=== PATIENT | female | born 1985 | race Two or more races ===

== ENCOUNTER 2018-01-03 11:38 | Emergency (ER) | payer MEDICAID ==
[~2018-01-03] VITALS: Ht 162.6 cm; Wt 53.5 kg
[2018-01-03] MEDS ORDERED: NKM (12:00)
[2018-01-03] MEDS ORDERED: Acetaminophen 500mg (ES) tab ORAL ONE (12:15)
[2018-01-03] MEDS ORDERED: Lidocaine 2% Visc 15ml soln ORAL ONE (12:15)
--- NOTE | 2018-01-03 12:20 | Emergency Room Report ---
History of Present Illness General Chief Complaint: Sore Throat Source: Patient Present Illness [facility] 32-year-old female patient presents to ER complaining of sore throat and frequency for the past one day. Reports body aches and fever to 101 during this time, reports took peppermint oil which cured fever, has not taken any Tylenol or Motrin. denies vomiting or diarrhea. denies earache. Denies cough, chest pain, shortness of breath. Also complains of frequency, denies history of diabetes. reports drinking a lot of water yesterday. Denies dysuria, hematuria, vaginal discharge. Reports last menstrual period normal. denies abdominal pain or back pain. Denies flank pain. Denies other acute symptoms. denies history of STI or herpes. Denies rash. Allergies: Coded Allergies: No Known Allergies (Unverified , 07/18/12) Patient History Past Medical History: see triage record Last Menstrual Period: 12/15/17 Reviewed Nursing Documentation: PMH: Agreed; PSxH: Agreed Nursing Documentation-PMH Past Medical History: No Stated History Review of Systems All Other Systems: negative except mentioned in HPI Physical Exam Vital Signs Date Time Temp Pulse Resp B/P (MAP) Pulse Ox O2 Delivery O2 Flow Rate FiO2 01/03/18 11:56 98.9 89 16 114/71 96 Room Air 99.0 Sp02 EP Interpretation: reviewed, normal General Appearance: well appearing, no apparent distress, alert, GCS 15, non- toxic Head: normocephalic, atraumatic Eyes: bilateral eye normal inspection, bilateral eye PERRL ENT: hearing grossly normal, normal pharynx, no angioedema, normal voice, TMs + canals normal, uvula midline, moist mucus membranes, tonsillar swelling, pharyngeal erythema, other - no strawberry tongue, no tonsillar exudates Neck: full range of motion Respiratory: lungs clear, normal breath sounds, no rhonchi, no respiratory distress, no accessory muscle use, no wheezing, speaking full sentences Cardiovascular #1: regular rate, rhythm, no edema Gastrointestinal: non tender, soft, no mass, non-distended, no guarding, no rebound Genitourinary: no CVA tenderness Musculoskeletal: back normal, digits/nails normal, gait/station normal, normal range of motion, non-tender Neurologic: alert, oriented x3, responsive, 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 Whiting is my supervising Physician whom patient management has been discussed with. Diagnostic Impression: Primary Impression: Urinary tract infection Additional Impression: Sore throat ER Course Pt presents to ED c/o sore throat and frequency. DDX considered but are not limited to pharyngitis, laryngitis, URI, peritonsillar abscess, tonsillitis, UTI, cystitis. Low suspicion for peritonsillar abscess, no neck stiffness, no hot potato voice , no stridor. Does not require imaging at this time. VITAL SIGNS are WNL, patient is afebrile. ORDERS: -Dexamethasone -Tylenol -UA -Urine ER COURSE: pharyngeal erythema, tender cervical lymphadenopathy, no cough, no fever in the ER, likely viral. Take Tylenol for pain symptoms. salt water gargles. No swelling of the face noted, no facial droop, able to furrow brow, no focal neuro deficits. Take Tylenol for pain symptoms. urine negative UA positive for white blood cells, leukocyte esterase, bacteria, will treat with antibiotics. Drink plenty of fluids, follow-up with primary care provider to discuss further evaluation and treatment as needed. Discuss referral to urology as needed. If concern for STI followup with STI clinic for testing and treatment. Denies concern at this time. DISCHARGE: Rx provided for Keflex Salt water gargles Rx provided for Tylenol for pain and fever symptoms At this time pt is stable for d/c to home. Patient is resting comfortably, in no acute distress, nontoxic appearing, talking without difficulty. Will provide with patient care instructions and any necessary prescriptions. Patient to take medication as instructed. Care plan and follow-up instructions provided. Patient questions asked and answered. Patient instructed to follow-up with primary care provider in 3 - 5 days. ER precautions given. Patient instructed to return to ER immediately for any new or worsening of symptoms including but not limited to intractable vomiting, difficulty breathing, inability to eat. - Please note that this Emergency Department Report was dictated using [employer] manager technology software, occasionally this can lead to erroneous entry secondary to interpretation by the dictation equipment. Labs Test 01/03/18 12:26 Urine Color Yellow Urine Appearance Turbid Urine pH 5 (4.5-8.0) Urine Specific [place] 1.020 (1.005-1.035) Urine Protein 1+ (NEGATIVE) Urine Glucose (UA) Negative (NEGATIVE) Urine Ketones 2+ (NEGATIVE) Urine Occult Blood 1+ (NEGATIVE) Urine Nitrite Negative (NEGATIVE) Urine Bilirubin Negative (NEGATIVE) Urine Urobilinogen Normal MG/DL (0.0-1.0) Urine Leukocyte Esterase 3+ (NEGATIVE) Urine RBC 0-2 /HPF (0 - 2) Urine WBC 10-15 /HPF (0 - 2) Urine Squamous Epithelial Cells Many /LPF (NONE/OCC) Urine Bacteria Many /HPF (NONE) Urine HCG, Qualitative Negative (NEGATIVE) Last Vital Signs Date Time Temp Pulse Resp B/P (MAP) Pulse Ox O2 Delivery O2 Flow Rate FiO2 01/03/18 11:56 98.9 89 16 114/71 96 Room Air 99.0 Disposition: HOME, SELF-CARE Condition: Stable Scripts Acetaminophen* (TYLENOL EXTRA STRENGTH*) 500 Mg Tablet 500 MG ORAL Q8H PRN for Prn Headache/Temp > 101, #30 TAB 0 Refills Prov: Pepe Regalado 01/03/18 Cephalexin* (KEFLEX*) 500 Mg Capsule 500 MG ORAL EVERY 12 HOURS, #14 CAP 0 Refills Prov: Pepe Regalado 01/03/18 Patient Instructions: Sore Throat, Urinary Tract Infection, [id number] Additional Instructions: Followup with primary care provider and discuss followup with and./or OBGYN as needed. Drink plenty of fluids. Take medications as directed. Salt water also and Tylenol for pain. Patient questions asked and answered. ER precautions given, patient instructed to return to ER immediately for any new or worsening of symptoms. Pepe Regalado Jan 03, 2018 12:20
[2018-01-03] MEDS ORDERED: Dexamethasone Elixir 0.25mg/2.5ml ORAL ONE (12:30)
[2018-01-03 12:38] VITALS: BP 114/71
[2018-01-03 12:38] LABS: APPEARANCE,URINE TURBID; BILIRUBIN, URINE NEGATIVE (NEGATIVE); COLOR,URINE YELLOW; GLUCOSE, URINE (UA) NEGATIVE (NEGATIVE); KETONES,URINE 2+ (NEGATIVE); LEUKOCYTE ESTERASE ,URINE 3+ (NEGATIVE); NITRITE,URINE NEGATIVE (NEGATIVE); PH,URINE 5 (4.5-8.0); PROTEIN,URINE 1+ (NEGATIVE); UROBILINOGEN,URINE NORMAL MG/DL (0.0-1.0)
[2018-01-03] MEDS ORDERED: TYLENOL EXTRA500 MG ORAL (12:57)
[2018-01-03] MEDS ORDERED: CEPHALEXIN500 MG ORAL (12:57)
[2018-01-03 14:00] VITALS: BP 110/70
== END 2018-01-03 14:01 | disposition home or self-care (01) ==
LOC: EMR 12:34
DX: N39.0 Urinary tract infection, site not specified (principal); J02.9 Acute pharyngitis, unspecified
CPT/HCPCS: 81003; 81025; 87086; 99284; J8540

== ENCOUNTER 2018-09-18 08:30 | Emergency (ER) | payer MEDICAID ==
[~2018-09-18] VITALS: Ht 162.6 cm; Wt 56.7 kg
[~2018-09-18 08:30] MED LIST: CEPHALEXIN500 MG ORAL; NKM; TYLENOL EXTRA500 MG ORAL
[2018-09-18 08:36] VITALS: BP 106/62
[2018-09-18] MEDS ORDERED: Acetaminophen 500mg (ES) tab ORAL ONE (09:00)
--- NOTE | 2018-09-18 09:06 | Emergency Room Report ---
History of Present Illness General Chief Complaint: Flu Like Symptoms Source: Patient Present Illness HPI 33-year-old female with no medical problems presents with sensation of myalgias since last night, she had a subjective fever, as well as headache, right greater than left, but moderate intensity, gradual onset, denies toothache, sore throat ear pain, any other symptoms. Recent illness such as cough, shortness of breath, abdominal pain, vomiting, diarrhea, only other symptom she noticed this morning visit felt a little uncomfortable when she urinated. Allergies: Coded Allergies: No Known Allergies (Unverified , 07/18/12) Patient History Past Medical History: see triage record Last Menstrual Period: 3-3 Now: No Reviewed Nursing Documentation: PMH: Agreed; PSxH: Agreed Nursing Documentation-PMH Past Medical History: No Stated History Review of Systems All Other Systems: negative except mentioned in HPI Physical Exam Vital Signs Date Time Temp Pulse Resp B/P (MAP) Pulse Ox O2 Delivery O2 Flow Rate FiO2 09/18/18 08:36 98.1 90 18 106/62 98 Room Air Sp02 EP Interpretation: reviewed, normal General Appearance: no apparent distress, alert, non-toxic Head: normocephalic Eyes: bilateral eye normal inspection, bilateral eye PERRL, bilateral eye EOMI ENT: normal ENT inspection, hearing grossly normal, normal pharynx, no angioedema, normal voice, moist mucus membranes Neck: normal inspection, full range of motion, supple, supple/symm/no masses Respiratory: chest non-tender, lungs clear, normal breath sounds, chest symmetrical, palpation of chest normal Cardiovascular #1: normal peripheral pulses, regular rate, rhythm Cardiovascular #2: 2+ radial (R), 2+ radial (L) Gastrointestinal: normal inspection, non tender, soft, no mass, no guarding, no rebound Rectal: deferred Genitourinary: normal inspection, no CVA tenderness Musculoskeletal: back normal, gait/station normal, normal range of motion, non- tender, no calf tenderness, Adilene's Sign negative Neurologic: alert, responsive, 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 UA equivocal, UPT negative, will dc with macrobid. Last Vital Signs Date Time Temp Pulse Resp B/P (MAP) Pulse Ox O2 Delivery O2 Flow Rate FiO2 09/18/18 08:57 90 18 Room Air 09/18/18 08:36 98.1 106/62 98 Disposition: HOME, SELF-CARE Condition: Stable Scripts No Active Prescriptions or Reported Meds Referrals: ROMAINE PINA,REFERRING (PCP) CRISTINO BOB M.D Sep 18, 2018 09:06
[2018-09-18 09:28] LABS: APPEARANCE,URINE CLEAR; BILIRUBIN, URINE NEGATIVE (NEGATIVE); COLOR,URINE YELLOW; GLUCOSE, URINE (UA) NEGATIVE (NEGATIVE); KETONES,URINE 1+ (NEGATIVE); LEUKOCYTE ESTERASE ,URINE 1+ (NEGATIVE); NITRITE,URINE NEGATIVE (NEGATIVE); PH,URINE 5 (4.5-8.0); PROTEIN,URINE 1+ (NEGATIVE); UROBILINOGEN,URINE NORMAL MG/DL (0.0-1.0)
[2018-09-18] MEDS ORDERED: NITROFURANTOIN100 M2 ORAL (09:45)
[2018-09-18 10:01] VITALS: BP 106/62
== END 2018-09-18 09:58 | disposition home or self-care (01) ==
LOC: EMR 08:51
DX: N39.0 Urinary tract infection, site not specified (principal); R50.9 Fever, unspecified; R51 Headache
CPT/HCPCS: 81003; 81025; 99283

== ENCOUNTER 2019-08-10 22:24 | Emergency (ER) | payer MEDICAID ==
[~2019-08-10] VITALS: Ht 162.6 cm; Wt 56.2 kg
[~2019-08-10 22:24] MED LIST changes: +NITROFURANTOIN100 M2 ORAL
--- NOTE | 2019-08-10 22:27 | NUR ---
called for triage not in waiting room.
--- NOTE | 2019-08-10 22:40 | NUR ---
ED Nurse Note: Patient walked into ED c/o left knee pain x 3 days. Stated she was exercising at onset of injury. Denies any fall. Pt able to walk with steady gait.
--- NOTE | 2019-08-10 23:22 | NUR ---
ED Nurse Note: xray at bedside.
[2019-08-11] MEDS ORDERED: IBUPROFEN400 MG ORAL (00:02)
[2019-08-11 00:06] VITALS: BP 134/81
--- NOTE | 2019-08-11 00:06 | NUR ---
ED Nurse Note: Pt cleared by ERMD for discharge. DC instructions/prescription was given and explained to pt and verbalized understanding of teachings. All medical deviecs such as ID band removed. Pt is AAO x4, ambulatory and left with all personal belongings.
--- NOTE | 2019-08-11 04:06 | Emergency Room Report ---
History of Present Illness General Chief Complaint: Lower Extremity Injury Source: Patient Present Illness HPI 34-year-old female presents ED for evaluation. Complaining of left knee pain. Started 3 days ago while doing squats at the gym. Banks a "crack" in her left knee. States she has not exercised since but feels pain and swelling to the left knee. Throbbing, 6 out of 10, nonradiating. Is able to ambulate. No other aggravating relieving factors. Denies any other associated symptoms Allergies: Coded Allergies: No Known Allergies (Unverified , 07/18/12) Patient History Past Medical History: none Past Surgical History: none Social History: Denies: smoking, alcohol use, drug use Last Menstrual Period: 07/26/2019 Now: No Immunizations: UTD Reviewed Nursing Documentation: PMH: Agreed; PSxH: Agreed Nursing Documentation-PMH Past Medical History: No Stated History Review of Systems All Other Systems: negative except mentioned in HPI Physical Exam Vital Signs Date Time Temp Pulse Resp B/P (MAP) Pulse Ox O2 Delivery O2 Flow Rate FiO2 08/10/19 22:34 98.6 90 14 134/81 (98) 98 Room Air Sp02 EP Interpretation: reviewed, normal General Appearance: no apparent distress, alert, GCS 15, non-toxic Head: normocephalic Eyes: bilateral eye normal inspection, bilateral eye PERRL ENT: normal ENT inspection Neck: normal inspection Respiratory: normal inspection Cardiovascular #1: normal inspection Gastrointestinal: normal inspection Rectal: deferred Genitourinary: no CVA tenderness Musculoskeletal: back normal, normal range of motion, gait/station normal, tender - L knee, swelling Neurologic: alert, motor strength/tone normal, oriented x3, sensory intact, responsive, speech normal Psychiatric: normal inspection Skin: no rash Lymphatic: normal inspection Procedures Splinting Splinting : Consent: Verbal Pre-Made Type: HUMPHREY wrap Pre-Proc Neuro Vasc Exam: normal Post-Proc Neuro Vasc Exam: normal Patient Tolerated: Well Complications: None Medical Decision Making Diagnostic Impression: Primary Impression: Knee pain Qualified Codes: M25.562 - Pain in left knee ER Course Hospital Course 34-year-old F presents to ED complaining of L knee pain/swelling Differential diagnoses include: Fracture, dislocation, sprain, contusion Clinical course Patient placed on stretcher. After initial history and physical, I ordered pain medications and Xrays of L knee Xrays prelim read shows no acute fracture/dislocation. I discussed findings with patient. Consideration for sprain. Will Humphrey wrap. Recommend ice, elevation, modified activity. Safe for discharge for close outpatient follow-up. I will provide referrals Diagnosis - knee pain Stable and discharged to home with prescription for Motrin. apply ice, keep elevated. weight bear as tolerated. Followup with PMD/ortho. Return to ED if symptoms recur or worsen Other X-Ray Diagnostic Results Other X-Ray Diagnostic Results : X-Ray ordered: L knee # of Views/Limited Vs Complete: 3 View Indication: Pain EP Interpretation: Yes Interpretation: no dislocation, no soft tissue swelling, no fractures Impression: No acute disease Electronically Signed by: Electronically signed by Donald Hebert MD Last Vital Signs Date Time Temp Pulse Resp B/P (MAP) Pulse Ox O2 Delivery O2 Flow Rate FiO2 08/11/19 00:06 98.6 14 134/81 98 Room Air 08/10/19 22:34 90 Status: improved Disposition: HOME, SELF-CARE Condition: Stable Scripts Ibuprofen* (MOTRIN*) 400 Mg Tablet 400 MG ORAL Q8H, #30 TAB 0 Refills Prov: Donald Hebert MD 08/11/19 Referrals: [facility],REFERRING (PCP) [facility] Open 24 hour /7 days a week by Appointment Only [address] [facility] [id number] Patient Instructions: Knee Sprain, Syon-[place]-Ovru Donald Hebert MD Aug 11, 2019 04:06
--- NOTE | 2019-08-11 10:33 | Diagnostic Imaging Report ---
. Indication: Left knee pain Technique: 3 views of the left knee Comparison: None Findings: No definite suprapatellar effusion. No acute fractures. No dislocations. The joint spaces are preserved Impression: Negative
== END 2019-08-11 00:06 | disposition home or self-care (01) ==
LOC: EMR 23:59
DX: M25.562 Pain in left knee (principal)
CPT/HCPCS: 73562; Z7502; 99283